=== PATIENT | male | born 1985 | race Caucasian/White ===

== ENCOUNTER 2016-07-17 09:50 | Emergency (ER) | payer OTHER ==
[2016-07-17 09:58] VITALS: O2SAT 98
[2016-07-17] MEDS ORDERED: CEFEPIME 2 GM VIAL IM ONE (10:13)
--- NOTE | 2016-07-17 10:17 | ED.PDOC ---
History of Present Illness - General Chief Complaint: Skin/Abrasion/Tear Time Seen by Provider: 07/17/16 09:57 Source: patient Exam Limitations: no limitations - History of Present Illness Initial Comments: The patient is a 31-year-old male presenting with erythema and pain to his right lateral dorsal foot. There is some pain with walking. He reports having discomfort for the last 2 weeks. He denies being a diabetic. No fevers. He has presented today secondary to worsening pain and increasing erythema to the dorsal aspect of his foot. Indeed there is an area of approximately 10 cm to the dorsal lateral aspect of his right foot extending from the webbing between his fourth and fifth digits. There is a small drainage site from between the fourth and fifth digit but nothing can be expressed from this at this time. There is no obvious abscess. There is mild streaking up towards the ankle. No gross bony deformity. There is mild swelling. Sensation is preserved. Motor function is preserved. Timing/Duration: constant, getting worse Severity: mild Improving Factors: nothing Worsening Factors: nothing Associated Symptoms: malaise Allergies/Adverse Reactions: Allergies NO KNOWN ALLERGY Allergy (Verified 07/17/16 10:02) Home Medications: Ambulatory Orders Amphetamine-Dextroamphetamine [Adderall] 2 tab PO DAILY 06/25/15 Ciprofloxacin [Cipro] 500 mg PO BID #20 tab 07/17/16 Sulfamethoxazole-Trimethoprim [Bactrim Ds 800-160 mg] 1 tab PO BID #20 tab 07/17 Review of Systems - Review of Systems Constitutional: States: malaise EENTM: States: no symptoms reported Respiratory: States: no symptoms reported Cardiology: States: no symptoms reported Gastrointestinal/Abdominal: States: no symptoms reported Genitourinary: States: no symptoms reported Musculoskeletal: States: see HPI Skin: States: see HPI Neurological: States: no symptoms reported All other Systems: No Change from Baseline Past Medical History (General) - Patient Medical History Hx Stroke: No Hx Congestive Heart Failure: No Hx Diabetes: No Hx MRSA: No Surgical History: no surgical history - Vaccination History Hx Influenza Vaccination: No Hx Pneumococcal Vaccination: No - Social History Hx Tobacco Use: Yes Family Medical History - Family History Father Family History: No Known Living Status: Still Living Physical Exam - Physical Exam General Appearance: Alert, Comfortable, No apparent distress Eye Exam: bilateral normal Ears, Nose, Throat: normal ENT inspection Neck: full range of motion, supple Respiratory: no respiratory distress, no accessory muscle use Cardiovascular/Chest: normal peripheral pulses, regular rate, rhythm, no edema Peripheral Pulses: radial,right: 2+, radial,left: 2+, dorsalis pedis,right: 2+, dorsalis pedis,left: 2+ Gastrointestinal/Abdominal: non tender, soft Rectal Exam: deferred Back Exam: normal inspection Extremity: normal range of motion, no calf tenderness, normal capillary refill, other - see history of present illness Neurologic: alert, normal mood/affect, oriented x 3 Skin Exam: normal color - with the exception as stated above Comments: Vital Signs - 24 hr 07/17/16 09:57 Temperature 97.9 F Pulse Rate [ 92 H Left Radial] Respiratory 20 Rate Blood Pressure 129/77 [Left Arm] O2 Sat by Pulse 98 Oximetry Progress - Progress Progress: 07/17/16 10:52 the patient is a 31-year-old male with right foot cellulitis. He was given a dose of Rocephin IM. He will be started on Bactrim and ciprofloxacin as an outpatient. They are to trace out the erythema when he gets home. He needs to follow-up with his primary care doctor in 2 days to make sure that this is improving. If it is not then he needs to start IV antibiotics or if it worsens significantly in that time then he will need to start IV antibiotics. There is nothing to culture at this point. The punctate lesion between the toes is not draining anything. This area does need to be washed 3 times daily with an antibacterial soap such as Dial. ER warnings were given otherwise.x- ray of the foot shows no evidence of fracture, dislocation or obvious osteomyelitis. Departure - Departure Clinical Impression: Cellulitis Qualifiers: Site of cellulitis: extremity Site of cellulitis of extremity: lower extremity Laterality: right Qualifier Code: (L03.115) Cellulitis of right lower limb Disposition: Discharge to Home or Self Care Condition: Fair Departure Forms: ED Discharge - Pt. Copy, Patient Portal Self Enrollment Instructions: DI for Cellulitis -- Adult Diet: regular diet Activity: increase activity as tolerated Referrals: Gordon Boston MD [Primary Care Provider] - 1-2 Days Prescriptions: Sulfamethoxazole-Trimethoprim [Bactrim Ds 800-160 mg] 1 tab PO BID #20 tab Ciprofloxacin [Cipro] 500 mg PO BID #20 tab Home Medications: Ambulatory Orders Amphetamine-Dextroamphetamine [Adderall] 2 tab PO DAILY 06/25/15 Ciprofloxacin [Cipro] 500 mg PO BID #20 tab 07/17/16 Sulfamethoxazole-Trimethoprim [Bactrim Ds 800-160 mg] 1 tab PO BID #20 tab 07/17 Additional Instructions: the patient is a 31-year-old male with right foot cellulitis. He was given a dose of Rocephin IM. He will be started on Bactrim and ciprofloxacin as an outpatient. They are to trace out the erythema when he gets home. He needs to follow-up with his primary care doctor in 2 days to make sure that this is improving. If it is not then he needs to start IV antibiotics or if it worsens significantly in that time then he will need to start IV antibiotics. There is nothing to culture at this point. The punctate lesion between the toes is not draining anything. This area does need to be washed 3 times daily with an antibacterial soap such as Dial. ER warnings were given otherwise.x- ray of the foot shows no evidence of fracture, dislocation or obvious osteomyelitis.
[2016-07-17] MEDS ORDERED: LIDOCAINE 1% 10 ML VIAL INJ ONE (10:39)
[2016-07-17 11:11] VITALS: BP 124/80; TEMP 97.4
--- NOTE | 2016-07-17 11:20 | RAD ---
EXAM DESCRIPTION: XR FOOT 3 OR MORE VIEWS CLINICAL HISTORY: extending erythem right lateral foot. COMPARISON: None available FINDINGS: There is no acute fracture or malalignment. The joint spaces are well maintained, and there is no lytic or sclerotic bone lesion. There is no radiopaque foreign body or soft tissue gas. IMPRESSION: Negative exam. Electronically signed by: Marco Tate DO 07/17/2016 11:18
== END 2016-07-17 11:20 | disposition home or self-care (01) ==
LOC: ER 09:50
DX: L03.115 Cellulitis of right lower limb (principal); Z87.891 Personal history of nicotine dependence

== ENCOUNTER → 2020-07-13 | Outpatient (CLI) | payer BC ==
--- NOTE | 2020-07-13 12:14 | MRI ---
EXAM DESCRIPTION: Elbow,Left CLINICAL HISTORY: 35 years, Male, ELBOW PAIN COMPARISON: None TECHNIQUE: MRI of the left elbow was performed with multiplanar multi sequence imaging according to our usual protocol. FINDINGS: Complete full-thickness tear of the distal long head biceps with retraction of the tendon 3 to 4 cm. The torn end is edematous and there is edema surrounding the tendon. Brachialis and triceps are intact. Elbow joint unremarkable. Radial and ulnar collaterals intact. IMPRESSION: Torn and retracted distal long head biceps Electronically signed by: Kevin Riley MD 07/13/2020 12:13 PM [facility]
== END ==
LOC: MRI 09:13
PROVIDERS: ATTEND Nurse Practitioner Family
DX: S46.212A Strain of muscle, fascia and tendon of other parts of biceps, left arm, initial encounter (principal)